=== PATIENT | male | born 1985 | race Hispanic/Latino ===

== ENCOUNTER 2017-08-30 23:01 | Emergency (ER) | payer SELFPAY ==
[2017-08-30] MEDS ORDERED: IPRATROPIUM/ALBUTEROL SULFATE 3 ML SOLUTION IH ONE (23:15)
[2017-08-30] MEDS ORDERED: METHYLPREDNISOLONE SOD SUCC 125MG/2ML VIAL ONE (23:54)
[2017-08-31] MEDS ORDERED: IPRATROPIUM/ALBUTEROL SULFATE 3 ML SOLUTION IH ONE ×2 (00:03→00:43)
[2017-08-31 00:04] LABS: RAPID GROUP A STREP NEGATIVE (NEGATIVE)
[2017-08-31] MEDS ORDERED: BENZONATATE 100 MG CAPSULE PO ONE (00:39)
== END 2017-08-31 01:47 | disposition home or self-care (01) ==
LOC: EDH 23:01
DX: J45.31 Mild persistent asthma with (acute) exacerbation (principal); J06.9 Acute upper respiratory infection, unspecified; Z72.0 Tobacco use
CPT/HCPCS: 71045; 87804 ×2; 87880; 94640 ×3; 96374; 99285; J2930

== ENCOUNTER 2018-02-12 23:40 | Emergency (ER) | payer OTHER ==
[2018-02-13] MEDS ORDERED: METHYLPREDNISOLONE SOD SUCC 125MG/2ML VIAL ONE (00:51)
[2018-02-13] MEDS ORDERED: MAG HYDROX/AL HYDROX/SIMETH ES 30 ML SUSP UDCUP ONE (00:51)
[2018-02-13] MEDS ORDERED: IPRATROPIUM/ALBUTEROL SULFATE 3 ML SOLUTION IH ONE (00:54)
== END 2018-02-13 02:07 | disposition home or self-care (01) ==
LOC: EDH 23:40
DX: J45.31 Mild persistent asthma with (acute) exacerbation (principal); Z72.0 Tobacco use
CPT/HCPCS: 71045; 94640; 96372; 99283; J2930

== ENCOUNTER 2023-04-03 15:52 | Emergency (ER) | payer OTHER ==
[~2023-04-03] VITALS: Ht 182.9 cm; Wt 83.5 kg
[2023-04-03 16:26] VITALS: BP 149/97; PULSE 74; RESP 20
[2023-04-03] MEDS ORDERED: MORPHINE 4 MG SYG IM STA (16:39)
[2023-04-03] MEDS ORDERED: ONDANSETRON ODT 4MG TAB SL STA (16:39)
[2023-04-03] MEDS ORDERED: TRAMADOL /APAP 37.5MG/325MG TAB PO STA (16:54)
[2023-04-03] MEDS ORDERED: CLIN-141 PO (17:13)
[2023-04-03] MEDS ORDERED: NAPR375T6 PO (17:13)
== END 2023-04-03 17:33 | disposition home or self-care (01) ==
LOC: EDH 15:52
DX: S02.5XXA Fracture of tooth (traumatic), initial encounter for closed fracture (principal); K05.6 Periodontal disease, unspecified; J45.909 Unspecified asthma, uncomplicated; X58.XXXA Exposure to other specified factors, initial encounter; Y93.89 Activity, other specified; Y92.89 Other specified places as the place of occurrence of the external cause; Y99.8 Other external cause status

== ENCOUNTER 2024-03-11 15:32 | Emergency (ER) | payer SELFPAY ==
[~2024-03-11] VITALS: Ht 180.3 cm; Wt 90.7 kg
[2024-03-11 15:32] VITALS: BP 139/91; TEMP 98.2
[~2024-03-11 15:32] MED LIST: CLIN-141 PO; NAPR-1505 PO
[2024-03-11] MEDS: Solu-medROL 125MG VIAL IVP ONE (16:01)
[2024-03-11] MEDS: IpraTROPium/alBUTERol SULFATE 3 ML SOLUTION IH ONE (16:59)
[2024-03-11 17:02] VITALS: PULSE 80; RESP 20
[2024-03-11] MEDS ORDERED: PRED10TA3 PO (17:36)
[2024-03-11] MEDS ORDERED: ALBU18HF7 IH (17:36)
== END 2024-03-11 17:53 | disposition home or self-care (01) ==
LOC: EDH 15:32
DX: J45.901 Unspecified asthma with (acute) exacerbation (principal); Z79.899 Other long term (current) drug therapy
CPT/HCPCS: 99283; 96374; 71045; 94640; J2919